=== PATIENT | male | born 1990 | race African-American/Black ===

== ENCOUNTER 2019-04-17 21:39 | Emergency (ER) | payer SELFPAY ==
[~2019-04-17] VITALS: Ht 182.9 cm; Wt 85.3 kg
--- NOTE | 2019-04-17 21:47 | NUR ---
"PT BIBRA 76 FOUND AT [facility] NAKED WITH BIZARRE BEHAVIOR. FIELD BS 109" PT AWAKE, ALERT, PT SPEAKS PORTUG[place], PT ON MONITOR, VSS, NAD NOTED, PENDING MD AN
--- NOTE | 2019-04-17 22:20 | NUR ---
SPOKE TO CRISTI VIA [facility] D/T PT SPEAKS [place], PT DOES NOT RECALL WHAT HE DID EALIER TODAY, PT AOX4, DENIES ANY DRUG USE, DENIES SI OR HI. PT STATES HX OF HYPERTENSION.
[2019-04-17 22:21] LABS: BASOPHILS % (AUTO) 0.4 % (0.0-2.0); EOSINOPHILS % (AUTO) 0.5 % (0.0-6.0); HEMATOCRIT 42 % (39-51); HEMOGLOBIN 14.3 g/dL (13.5-17.5); LYMPHOCYTES # (AUTO) 3.5 /CMM (0.8-4.8); LYMPHOCYTES % (AUTO) 42.7 % (20.0-44.0); MEAN CORPUSCULAR HGB CONC 34 g/dl (31.0-36.0); MEAN CORPUSCULAR VOLUME 90 fL (80-96); MONOCYTES # (AUTO) 0.6 /CMM (0.1-1.30); MONOCYTES % (AUTO) 7.3 % (2.0-12.0); NEUTROPHILS % (AUTO) 49.1 % (43.0-81.0); PLATELET COUNT (AUTO) 210 /CMM (150-450); RED BLOOD CELL COUNT(AUTO) 4.63 MIL/uL (4.5-6.0); WHITE BLOOD COUNT (AUTO) 8.1 K/uL (4.3-11.0)
[2019-04-17 22:29] LABS: CALCIUM, SERUM 9.7 mg/dL (8.5-10.1); CARBON DIOXIDE 23 mmol/L (21-32); CHLORIDE 106 mmol/L (98-107); CREATININE 1.6 mg/dL (0.6-1.3); GLUCOSE 109 mg/dL (74-106); POTASSIUM 3.7 mmol/L (3.5-5.1); SODIUM SERUM 143 mmol/L (136-145); UREA NITROGEN, BLOOD 17 mg/dL (7-18)
[2019-04-17 22:34] LABS: ALANINE AMINOTRANSFERASE 44 U/L (12-78); ALBUMIN 4.2 g/dL (3.4-5.0); ALKALINE PHOSPHATASE 53 U/L (46-116); ASPARTATE AMINOTRANSFERASE 56 U/L (15-37); BILIRUBIN,DIRECT 0.1 mg/dL (0.0-0.2); BILIRUBIN,TOTAL 0.7 mg/dL (0.2-1.0); TOTAL PROTEIN, SERUM 8.1 g/dL (6.4-8.2)
[2019-04-17 22:37] LABS: ACETAMINOPHEN 0 ug/ml (10-30); ALCOHOL, BLOOD < 3 mg/dL (0-0); SALICYLATE 0.7 mg/dL (2.8-20.0)
--- NOTE | 2019-04-18 00:09 | NUR ---
Patient given written and verbal discharge instructions. Patient verbalizes understanding of instructions. Patient is ambulatory with steady gait. Refuses offer of senior living placement. Patient given list of available shelters in surrounding area.
[2019-04-18 00:11] VITALS: BP 139/75
== END 2019-04-18 00:12 | disposition home or self-care (01) ==
LOC: ER 21:43
DX: R46.2 Strange and inexplicable behavior (principal)
CPT/HCPCS: 36415; 80048; 80076; 80307; 80329; 85025; 99284; G0480